=== PATIENT | female | born 1990 | race Caucasian/White ===

== ENCOUNTER 2018-05-11 06:46 | Inpatient (IN) | payer OTHER ==
[~2018-05-11] VITALS: Ht 162.6 cm; Wt 97.0 kg
--- NOTE | ~2018-05-11 | OR ---
[facility] [address], [place] [address] Draft DATE OF OPERATION: 05/11/2018 SURGEON: Guillermina Arreguin DO PREOPERATIVE DIAGNOSES: 1. Term intrauterine . 2. Failure to progress. 3. Failure to descend. 4. tachycardia. 5. GBS positive, status post penicillin prophylaxis. 6. Rh negative, status post RhoGAM at 28 weeks. 7. Suspected macrosomia. POSTOPERATIVE DIAGNOSES: 1. Term intrauterine . 2. Failure to progress. 3. Failure to descend. 4. tachycardia. 5. GBS positive, status post penicillin prophylaxis. 6. Rh negative, status post RhoGAM at 28 weeks. 7. Suspected macrosomia. [employer] INST[employer]ER: Duarte Singh MD ANESTHESIA: Spinal. COMPLICATIONS: None. ESTIMATED BLOOD LOSS: 800 mL. FINDINGS: Viable male , weighing 8 pounds 2 ounces with Apgars of 7 and 8 at 1 and 5 minutes respectively. No nuchal cord. Normal umbilical cord and placenta. Normal uterus, tubes, and ovaries. INDICATIONS: PATIENT NAME: SAMI PERRIN OPERATIVE REPORT DATE OF : 89 REPORT #: [id number] PHYSICIAN: GUILLERMINA ARREGUIN DO PCP: GUILLERMINA ARREGUIN DO REPORT IS CONFIDENTIAL AND NOT TO BE RELEASED WITHOUT AUTHORIZATION [facility] [address] [place] [id number] [address] Ms. Perrin is a pleasant 27-year-old G1, P0, with term intrauterine , who presented with spontaneous labor. She was admitted to Labor and Delivery and contractions became painful. She requested an epidural, which is currently placed by Anesthesia. The patient is GBS positive and penicillin prophylaxis has been started. AROM was then performed for meconium-stained fluid. The patient progressed to 8 cm. She did have some uterine tachysystole that resolved with IV fluid bolus and maternal repositioning. She did not receive Pitocin. There was some noted maternal tachycardia, and the EKG showed sinus tachy. CMP was normal and preoperative hemoglobin was normal as well. The patient remained at 8 cm and cervix became swollen and thick. Despite 8 cm of dilation, the baby was noted to be at -1 station with significant caput. Given tachycardia, high station, swollen cervix, and suspected macrosomia, I recommended a primary low transverse section, which the patient and agreed. All questions were answered after risks and benefits were discussed in detail. TECHNIQUE: The patient was taken to the operating room where a time-out was performed to confirm correct patient and correct procedure. Epidural was bolused and the patient felt no effect and decision was made to proceed with spinal anesthesia. Spinal anesthesia was adequately established and the patient was then prepped and draped in the supine position with a bump under her right hip. ICPs were on and running and Ancef 2 g were given preoperatively. Heparin was not indicated. After ensuring the spinal anesthesia was adequate, a Pfannenstiel skin incision was made and carried down to and through the fascia in the midline. The fascia was nicked in the midline and fascial incision was extended bilaterally using Thomas scissors. The rectus muscles were then divided sharply and bluntly from the fascia and divided in the midline bluntly. The peritoneum was grasped with hemostats, elevated and incised sharply. Peritoneal incision was extended cephalad, caudad using blunt dissection. The lower uterine segment was identified and the surgeon's hand was placed in the abdomen and the abdomen was found to be free of adhesions. An Piyush self retractor was placed and the lower uterine segment identified. Hysterotomy was performed using a surgical scalpel and meconium-stained fluid was again noted. The hysterotomy was extended bilaterally using blunt dissection. The surgeon's hand was placed into the uterine cavity and the vertex was noted to be deeply engaged. The vertex was easily elevated into the maternal abdomen and delivered with the assistance of fundal pressure in the MINE position. No nuchal cord was noted. The remainder of the delivered with the assistance of fundal pressure. Cord was doubly clamped and cut and the oral and nasopharynx were bulb suctioned. The was handed to the waiting pediatric team for further care. Cord blood was obtained for routine analysis and the placenta was expressed intact with a centrally inserted three-vessel cord. The uterus was cleared of any remaining products of conception and clot and the hysterotomy was then repaired using 0 Vicryl in a running locked suture. Some oozing was noted from the left uterine artery and this was made hemostatic using an [place] stitch with careful attention to deflect the bladder caudad PATIENT NAME: SAMI PERRIN OPERATIVE REPORT DATE OF : [birth year] REPORT #: [id number] PHYSICIAN: GUILLERMINA ARREGUIN DO PCP: GUILLERMINA ARREGUIN DO REPORT IS CONFIDENTIAL AND NOT TO BE RELEASED WITHOUT AUTHORIZATION [facility] [address], [place] [address] Draft while the surgeon's hand was behind the broad ligament. Good hemostasis was appreciated. The hysterotomy was then imbricated using 0 Vicryl in a running vertical imbricating stitch. A small amount of oozing was noted in the lower segment. This was made hemostatic with a combination of [id number] sutures of 0 Vicryl and Bovie electrocautery. Excellent hemostasis was appreciated. Evicel was applied to the lower uterine segment. The Piyush retractor was removed and the lower uterine segment again identified and hemostatic. The uterus, tubes, and ovaries were found to be normal and the pelvis was irrigated and any clot was removed. Again, after good hemostasis, ACell sheet was applied to the lower uterine segment and the peritoneum was reapproximated using 2-0 Vicryl in a running nonlocked stitch. Rectus was evaluated and found to be hemostatic. This was reapproximated using 0 Vicryl and three loose simple six interrupted sutures of 0 Vicryl. The fascia was then reapproximated using 0 Vicryl in a running nonlocked stitch after applying ACell powder to the rectus sheath. Subcutaneous space was examined and made hemostatic with Bovie electrocautery. The remainder of Evicel was applied to the subcutaneous space and the ACell powder was also applied to this base. Subcutaneous space was closed using 3-0 Vicryl in a running nonlocked stitch. Skin was then reapproximated using 2-0 Quill in a running subcuticular stitch with good hemostasis and cosmesis. The uterus was Crede'd for scant amount of blood and the patient was then taken to the PACU in good and stable condition with her . Sponge, needle, and instrument counts correct x2 at the end of the procedure. Dr. Singh was present and participated in all portions of the procedure. DO SANJANA Garcia/MELONIE /[id number] Copies: ~ PATIENT NAME: SAMI PERRIN OPERATIVE REPORT DATE OF : [birth year] REPORT #: [id number] PHYSICIAN: GUILLERMINA ARREGUIN DO PCP: GUILLERMINA ARREGUIN DO REPORT IS CONFIDENTIAL AND NOT TO BE RELEASED WITHOUT AUTHORIZATION
[~2018-05-11 06:46] MED LIST: AMOXICILLIN500 MG PO; IBUPROFEN600 MG PO; KEFLEX500 MG PO; NORCO 5-325 TA1 EACH PO
--- NOTE | 2018-05-12 00:58 | NUR ---
05/12/18 0058 Liss Mcintyre 0040: BABY TO BREAST ON ADMISSION TO RECOVERY ROOM. FATHER @ BS. 0057: SCRATCHER TENDER ADMINISTERING BLOOD PRESSURE SUPPORT FOR HYPOTENSION.
--- NOTE | 2018-05-12 07:07 | EKG ---
[facility] [address] [facility] [place], [place] [address] Signed Sinus tachycardia Otherwise normal ECG No previous ECGs available Confirmed by NICOLLE CHAN MD ([id number]) on 05/12/2018 7:07:20 AM Electronically Signed By: NICOLLE CHAN MD 05/12/18 0707 PATIENT NAME: SAMI GUERRA Electrocardiogram DATE OF : [birth year] PHYSICIAN: NICOLLE CHAN MD REPORT #: [id number] REPORT IS CONFIDENTIAL AND NOT TO BE RELEASED WITHOUT AUTHORIZATION
[2018-05-14] MEDS ORDERED: PRENATAL VITAM1 EAC7 PO (01:07)
== END 2018-05-14 14:10 | disposition home or self-care (01) | DRG 766 ==
LOC: FBCO 06:46 → FBC 11:30
PROVIDERS: ADMIT Obstetrics & Gynecology
PROC: 10907ZC Drainage of Amniotic Fluid, Therapeutic from Products of Conception, Via Natural or Artificial Opening (ICD-10-PCS; 2018-05-11)
PROC: 00HU33Z Insertion of Infusion Device into Spinal Canal, Percutaneous Approach (ICD-10-PCS; 2018-05-11)
PROC: 3E0R3BZ Introduction of Anesthetic Agent into Spinal Canal, Percutaneous Approach (ICD-10-PCS; 2018-05-11)
PROC: 10D00Z1 Extraction of Products of Conception, Low, Open Approach (ICD-10-PCS; principal; 2018-05-11 23:21)
DX: O32.4XX0 Maternal care for high head at term, not applicable or unspecified (principal); O99.824 Streptococcus B carrier state complicating childbirth; O36.63X0 Maternal care for excessive fetal growth, third trimester, not applicable or unspecified; O76 Abnormality in fetal heart rate and rhythm complicating labor and delivery; O77.0 Labor and delivery complicated by meconium in amniotic fluid; O99.52 Diseases of the respiratory system complicating childbirth; J30.1 Allergic rhinitis due to pollen; Z79.899 Other long term (current) drug therapy; Z3A.39 39 weeks gestation of pregnancy; Z37.0 Single live birth
CPT/HCPCS: 01960; 01961; 36415; 59025; 80053; 83030; 85027; 86850; 86900; 86901; 93005; 93010; 99213; C1763; J0131; J0690; J1100; J1885; J2274; J2300; J2370; J2405; J2540; J2590; J2790; J3010; J3105; J7120